=== PATIENT | female | born 1995 | race Caucasian/White ===

== ENCOUNTER 2023-02-24 16:49 | Emergency (ER) | payer OTHER, SELFPAY ==
[2023-02-24 16:55] VITALS: BP 157/84; PULSE 90; RESP 18; TEMP 36.9; O2SAT 98; BMI 25.7
--- NOTE | 2023-02-24 17:04 | ED_ITS ---
Documented by User: Adeline Howard MD 02/24/23 18:05 HPI - Female Genitourinary General Chief complaint: Urogenital-Female Stated complaint: UTI Time Seen by Provider: 02/24/23 17:04 Mode of arrival: walk-in Related Data Home Medications Medication Instructions Recorded Confirmed pantoprazole 40 mg tablet,delayed 40 mg PO DAILY 02/24/23 02/24/23 release (Protonix) prednisone 5 mg tablet 5 mg PO DAILY 02/24/23 02/24/23 Allergies Allergy/AdvReac Type Severity Reaction Status Date / Time No Known Drug Allergies Allergy Verified 02/24/23 17:00 Exam Constitutional Vital Signs - 24 hr 02/24/23 16:55 Temperature 98.4 F Pulse Rate [Monitor] 90 Respiratory Rate 18 Blood Pressure [Left Arm] 157/84 H Pulse Oximetry 98 Oxygen Delivery Method Room Air Course Course Hospital Course: Patient has refused to have a pelvic exam done in the emergency department. She states she has anxiety and she will follow up with the health department. She is accompanied by the mom. The patient will be happy to set everything up to do it here but she has declined it. Vital Signs Vital signs: Vital Signs Temperature 98.4 F 02/24/23 16:55 Pulse Rate 90 02/24/23 16:55 Respiratory Rate 18 02/24/23 16:55 Blood Pressure 157/84 H 02/24/23 16:55 Pulse Oximetry 98 02/24/23 16:55 Oxygen Delivery Method Room Air 02/24/23 16:55 Temperature 98.4 F 02/24/23 16:55 Pulse Rate 90 02/24/23 16:55 Respiratory Rate 18 02/24/23 16:55 Blood Pressure 157/84 H 02/24/23 16:55 Pulse Oximetry 98 02/24/23 16:55 Oxygen Delivery Method Room Air 02/24/23 16:55 MDM - Female Genitourinary Differential Diagnosis Differential diagnosis: Likely urinary tract infection, trichomoniasis, cervicitis and ovarian cyst Lab Data Labs: Lab Results 02/24/23 02/24/23 Range/Units 16:58 17:15 Urine Color Yellow (YELLOW) Urine Clarity Clear (CLEAR) Urine pH 6.0 (5.0-9.0) Ur Specific [place] >=1.030 A (1.005-1.025) Urine Protein Trace (NEG/TRACE) mg/dL Urine Glucose (UA) Negative (NEGATIVE) mg/dL Urine Ketones >=80 A (NEGATIVE) mg/dL Urine Occult Blood Small A (NEGATIVE) Urine Nitrite Negative (NEGATIVE) Urine Bilirubin Small A (NEGATIVE) Urine Urobilinogen 0.2 (0.2-1.0) EU/dL Ur Leukocyte Esterase Negative (NEGATIVE) Urine RBC 2-5 A (0-2) #/HPF Urine WBC None seen (NONE SEEN) #/HPF Ur Squamous Epith Cells Rare (NONE/RARE) #/LPF Urine Crystals None seen (None Seen) #/HPF Urine Bacteria Trace A (NONE SEEN) #/HPF Urine Casts None seen (NONE SEEN) #/LPF Urine Mucus None seen (NONE SEEN) Ur Culture Indicated? No Urine HCG, Qual Negative (NEGATIVE) Discharge Plan Discharge Chief Complaint: Urogenital-Female Clinical Impression: Dysuria Patient Disposition: Home, Self-Care Time of Disposition Decision: 17:44 Condition: Good Prescriptions / Home Meds: No Action prednisone 5 mg tablet 5 mg PO DAILY pantoprazole [Protonix] 40 mg tablet,delayed release (DR/EC) 40 mg PO DAILY Instructions: Safe Sex Practices (ED), Dysuria (ED) Stand Alone Forms: Portal Instructions Referrals: Claudio Olivia DO [Physician] - 1 week Suleiman Lloyd MD [Physician] - As needed (3-5 days) Documented by User: VAHE Collins 02/24/23 17:47 HPI - Female Genitourinary General Chief complaint: Urogenital-Female Stated complaint: UTI Time Seen by Provider: 02/24/23 17:04 History of Present Illness HPI Narrative: Patient is a 27-year-old female presents to the Emergency Room with concerns of possible urinary tract infection, patient notes for the past couple days she's had burning urgency and frequency with urination. Patient tearful at the bedside, admits that her real complaint is that six months ago she had a sexual partner with unprotected sex and has been having anxiety about james an STD. Patient states she did not hear specifically from her partner that he had anything to have treated, but patient states she now has a new partner and has not had any concerns but still gets anxiety about the possibility. Patient states that there are numerous sexual transmitted disease that she was not tested for when she saw her microbiology quality control technician with a Pap smear and culture a few months ago. Patient denies any current symptoms of rash headache or fever, denies any shortness of breath, denies any vaginal discharge drainage or dyspareunia. She denies any external vaginal lesions. Patient states she is otherwise healthy and denies any illicit drug use or IV drug abuse. Related Data Home Medications Medication Instructions Recorded Confirmed pantoprazole 40 mg tablet,delayed 40 mg PO DAILY 02/24/23 02/24/23 release (Protonix) prednisone 5 mg tablet 5 mg PO DAILY 02/24/23 02/24/23 Allergies Allergy/AdvReac Type Severity Reaction Status Date / Time No Known Drug Allergies Allergy Verified 02/24/23 17:00 Review of Systems ROS Constitutional Denies: fever, chills or change in weight Eyes Denies: change in vision Ears, nose, mouth, and throat Denies: throat pain or neck pain Cardiovascular Denies: chest pain or palpitations Respiratory Denies: shortness of breath or cough Gastrointestinal Denies: abdominal pain or nausea Genitourinary Reports: urinary frequency and urinary urgency Musculoskeletal Denies: back pain or neck pain Integumentary/Breast Denies: rash or itching Neurological Denies: headache or numbness in extremities Psychiatric Reports: anxiety Hematologic/Lymphatic Denies: easy bruising Exam Narrative Exam Narrative: Nurses notes and vital signs reviewed and patient is not hypoxic. General: The patient tearful about the anxiety surrounding the possibility of james STD six months ago . Patient is resting comfortably on cart. Skin: Warm, dry, no pallor noted. Head: Normocephalic, atraumatic Neck: Supple, trachea mid-line, no tenderness, no lymphadenopathy Eye: Pupils are equal, round and reactive to light, EOMI Ears, Nose, Mouth, and Throat: TM are clear, normal light reflex, oral mucosa is moist, no posterior oropharynx erythema or hypertrophy, uvula is mid-line Cardiovascular: Regular Rate and Rhythm Respiratory: Patient is in no distress, no accessory muscle use, lungs are clear to auscultation, no wheezing, rales or rhonchi. Chest Wall: no tenderness Back: non-tender, no CVA tenderness Musculoskeletal: normal ROM, no tenderness, no swelling GI: Normal bowel sounds, no tenderness to palpation, no masses appreciated. No rebound, guarding, or rigidity noted. Neurological: A&O x4 Psychiatric: Cooperative Constitutional Vital Signs - 24 hr 02/24/23 16:55 Temperature 98.4 F Pulse Rate [Monitor] 90 Respiratory Rate 18 Blood Pressure [Left Arm] 157/84 H Pulse Oximetry 98 Oxygen Delivery Method Room Air Course Course Hospital Course: Patient has refused to have a pelvic exam done in the emergency department. She states she has anxiety and she will follow up with the health department. She is accompanied by the mom. The patient will be happy to set everything up to do it here but she has declined it. Vital Signs Vital signs: Vital Signs Temperature 98.4 F 02/24/23 16:55 Pulse Rate 90 02/24/23 16:55 Respiratory Rate 18 02/24/23 16:55 Blood Pressure 157/84 H 02/24/23 16:55 Pulse Oximetry 98 02/24/23 16:55 Oxygen Delivery Method Room Air 02/24/23 16:55 Temperature 98.4 F 02/24/23 16:55 Pulse Rate 90 02/24/23 16:55 Respiratory Rate 18 02/24/23 16:55 Blood Pressure 157/84 H 02/24/23 16:55 Pulse Oximetry 98 02/24/23 16:55 Oxygen Delivery Method Room Air 02/24/23 16:55 MDM - Female Genitourinary MDM Narrative Medical decision making narrative: Dysuria chief complaint, urinalysis showing signs of dehydration, patient can tolerate by mouth fluids and plans to drink more. States she's been very nervous and crying for the past few days about the possibility of her symptoms. We disc ussed her urine without evidence of infection and patient willing to get pelvic exam for cultures. Recommend holding antibiotics pending culture results given patient having testing done after her exposure previously. She denies any sexual assault, we specifically discussed her anxiety and she does see a counselor [facility], but has not reached out them recently. Recommend appointment with the local health department to discuss more mckoy screening as patient is requesting blood work for confirmation to rule out STD. The patient is to followup with / Dr. Olivia/ [facility] in next 2-3 days or to return to the emergency department should any of the signs or symptoms worsen or new symptoms develop. Patient had questions answered. The patient agrees with the following Diagnosis and Treatment plan and the patient will be discharged home. Lab Data Labs: Lab Results 02/24/23 02/24/23 Range/Units 16:58 17:15 Urine Color Yellow (YELLOW) Urine Clarity Clear (CLEAR) Urine pH 6.0 (5.0-9.0) Ur Specific [place] >=1.030 A (1.005-1.025) Urine Protein Trace (NEG/TRACE) mg/dL Urine Glucose (UA) Negative (NEGATIVE) mg/dL Urine Ketones >=80 A (NEGATIVE) mg/dL Urine Occult Blood Small A (NEGATIVE) Urine Nitrite Negative (NEGATIVE) Urine Bilirubin Small A (NEGATIVE) Urine Urobilinogen 0.2 (0.2-1.0) EU/dL Ur Leukocyte Esterase Negative (NEGATIVE) Urine RBC 2-5 A (0-2) #/HPF Urine WBC None seen (NONE SEEN) #/HPF Ur Squamous Epith Cells Rare (NONE/RARE) #/LPF Urine Crystals None seen (None Seen) #/HPF Urine Bacteria Trace A (NONE SEEN) #/HPF Urine Casts None seen (NONE SEEN) #/LPF Urine Mucus None seen (NONE SEEN) Ur Culture Indicated? No Urine HCG, Qual Negative (NEGATIVE) Discharge Plan Discharge Chief Complaint: Urogenital-Female Clinical Impression: Dysuria Patient Disposition: Home, Self-Care Time of Disposition Decision: 17:44 Condition: Good Prescriptions / Home Meds: No Action prednisone 5 mg tablet 5 mg PO DAILY pantoprazole [Protonix] 40 mg tablet,delayed release (DR/EC) 40 mg PO DAILY Instructions: Safe Sex Practices (ED), Dysuria (ED) Stand Alone Forms: Portal Instructions Referrals: Claudio Olivia DO [Physician] - 1 week Suleiman Lloyd MD [Physician] - As needed (3-5 days)
[2023-02-24 17:11] LABS: Bilirubin Urine SMALL (NEGATIVE); Blood Urine SMALL (NEGATIVE); Clarity Urine CLEAR (CLEAR); Color Urine YELLOW (YELLOW); Glucose Urine UA NEGATIVE (NEGATIVE); Ketones Urine >=80 mg/dL (NEGATIVE); Leukocyte Esterase Urine NEGATIVE (NEGATIVE); Nitrite Urine NEGATIVE (NEGATIVE); Protein Urine TRACE mg/dL (NEG/TRACE); Specific Gravity Urine >=1.030 (1.005-1.025); Urobilinogen Urine 0.2 EU/dL (0.2-1.0)
[2023-02-24 17:15] LABS: Urine Microscopic Indicated YES
[2023-02-24 17:19] LABS: Bacteria Urine TRACE #/HPF (NONE SEEN); Crystals Seen? None Seen #/HPF (None Seen); Mucus Urine NONE SEEN (NONE SEEN); Squamous Epithelial Cell Urine RARE #/LPF (NONE/RARE); WBC Urine NONE SEEN #/HPF (NONE SEEN)
[2023-02-24 17:20] LABS: Cast Seen? NONE SEEN #/LPF (NONE SEEN); Urine Culture Indicated NO
[2023-02-24 17:22] LABS: HCG Qualitative Urine* NEGATIVE (NEGATIVE)
[2023-02-27 00:07] LABS: Neisseria gonorrhoeae, NAA Negative (Negative)
== END 2023-02-24 18:01 | disposition home or self-care (01) ==
PROVIDERS: Personal Emergency Response Attendant; Emergency Provider Emergency Medicine
DX: R30.0 Dysuria (principal)
CPT/HCPCS: 81003; 81015; 84703; 87491; 87591; 99283